=== PATIENT | male | born 1945 | race African-American/Black ===

== ENCOUNTER 2017-01-02 19:41 | Inpatient (IN) | payer BC ==
[~2017-01-02] VITALS: Ht 185.4 cm; Wt 78.5 kg
--- NOTE | 2017-01-02 19:29 | Emergency Room Report ---
History of Present Illness General Source: Patient, Medical Record, EMS Present Illness HPI 71YOM with 2x episodes syncope tonight. First occurred when bringing dishes to sink after dinner. Not sure if hit head. LOC for "a couple seconds." Denies any pain from fall. Tried again and fell again. Saw GI specialist this morning - has endocscopy scheduled to "evaluate for ulcer." Was given Rx refill for omeprazole. Also had "some dark stool" had "some blood in test the GI doctor did this morning." Saw PMD 5 days prior for stomach discomfort, gassy feeling. Has been on PPI for a while because he used to take ASA daily. Has allergy to ibuprofen so never took chronically.Denies any other chronic NSAID use. Per EMS SBP was 89 on scene ,improved to >100 after IVF fluid bolus Takes daily HTN med in the morning - took today. HCTZ/Lisinopril. Not on beta- rashid. Has been on fast for a week - only tea, juice. No food or much water. Allergies: Coded Allergies: No Known Allergies (Unverified , 01/02/17) Patient History Past Medical History: HTN, GERD, other - See HPI Past Surgical History: none Pertinent Family History: none Social History: Denies: smoking, alcohol use, drug use Immunizations: UTD Reviewed Nursing Documentation: PMH: Agreed, PSxH: Agreed Review of Systems All Other Systems: negative except mentioned in HPI Physical Exam Sp02 EP Interpretation: reviewed, normal General Appearance: normal inspection, well appearing, no apparent distress, alert, GCS 15, non-toxic Head: normocephalic, atraumatic Eyes: bilateral eye PERRL, bilateral eye EOMI ENT: normal ENT inspection, hearing grossly normal, normal voice Neck: normal inspection, full range of motion, supple, no bony tend Respiratory: normal inspection, lungs clear, normal breath sounds, no respiratory distress, no retraction, no wheezing Cardiovascular #1: regular rate, rhythm, no edema Gastrointestinal: normal inspection, normal bowel sounds, non tender, soft, no guarding, no hernia Genitourinary: no CVA tenderness Musculoskeletal: normal inspection, back normal, normal range of motion, Helio' s Sign negative Neurologic: normal inspection, alert, responsive, speech normal Psychiatric: normal inspection, judgement/insight normal, mood/affect normal Skin: normal inspection, normal color, no rash Procedures Critical Care Time Critical Care Time CC time 45 min includes stabilization of hypotension, multiple bedside assessment for fluid status, review of labs, imaging Possibly includes pressors, d/w hospitalist or critical care management Review of EMR, discussion with family, review of chart from [facility] Medical Decision Making Medicare Attestation I Edward Mcarthur MD hereby attest that the medical record entry for date of service, 01/02/17 accurately reflects signatures/notations that I made in my capacity as MD when I treated/diagnosed the above listed Medicare beneficiary. I attest that this information is true, accurate and complete to the best of my knowledge. I understand that any falsification, omission, or concealment of material fact may subject me to administrative, civil, or criminal liability. This patient warrants hospital admission for extreme of age and has a condition that cannot be treated as outpatient. Diagnostic Impression: Primary Impression: Hypotension Qualified Codes: I95.9 - Hypotension, unspecified Additional Impressions: Syncope Qualified Codes: R55 - Syncope and collapse Melena SEAN (acute kidney injury) Dehydration ER Course 71YOF with 2x syncopal episodes in setting of fast, diuretic use, ?GI bleed Hypotension is fluid responsive here SEAN with elevated serum Cr 3.3 HypoNa also c/w dehydration 2L NS given in ED ECG non-ischemic. Sinus rhythm with sinus arrhythmia and PACs CT head negative for trauma Endorsed to DR Iglesias for tele admit at 840pm EKG Diagnostic Results Rate: normal, other - PACs Rhythm: NSR ST Segments: no acute changes ASA given to the pt in ED: No Rhythm Strip Diag. Results EP Interpretation: yes Rate: 75 Rhythm: NSR, no PVC's, no ectopy Chest X-Ray Diagnostic Results Chest X-Ray Diagnostic Results : Chest X-Ray Ordered: Yes # of Views/Limited/Complete: 1 View Indication: Other - AMS EP Interpretation: Yes Interpretation: no consolidation, no effusion, no pneumothorax, no acute cardiopulmonary disease Impression: No acute disease Electronically Signed by: Dr Edward Mcarthur MD Status: improved Disposition: ADMITTED INPATIENT Condition: EDWARD Rahman M.D. Jan 02, 2017 19:29
[~2017-01-02 19:41] MED LIST: LISINOPRIL-HCT1 EAC2 ORAL; OMEPRAZOLE20 M2 ORAL
[2017-01-02 19:45] VITALS: BP 108/43
[2017-01-02] MEDS ORDERED: Pantoprazole Inj IVP ONE (19:45)
[2017-01-02 20:10] LABS: BASOPHILS % (AUTO) 0.8 % (0.0-2.0); EOSINOPHILS % (AUTO) 0.6 % (0.0-3.0); LYMPHOCYTES % (AUTO) 18.1 % (20.0-45.0); MEAN CORPUSCULAR HEMOGLOBIN 27.8 PG (27.0-31.0); MEAN CORPUSCULAR HGB CONC 31.9 G/DL (32.0-36.0); MEAN CORPUSCULAR VOLUME 87 FL (80-99); MEAN PLATELET VOLUME 6.6 FL (6.5-10.1); MONOCYTES % (AUTO) 8.3 % (1.0-10.0); NEUTROPHILS % (AUTO) 72.1 % (45.0-75.0); PLATELET COUNT 161 K/UL (150-450); RED BLOOD COUNT 4.85 M/UL (4.70-6.10); RED CELL DISTRIBUTION WIDTH 11.7 % (11.6-14.8); WHITE BLOOD COUNT 6.2 K/UL (4.8-10.8)
[2017-01-02 20:21] LABS: ANION GAP 6 mmol/L (5-15); CALCIUM 8.8 MG/DL (8.5-10.1); CARBON DIOXIDE 30 MMOL/L (21-32); CHLORIDE 93 MMOL/L (98-107); CREATININE 3.3 MG/DL (0.55-1.30); GLOMERULAR FILTRATION RATE 22.5 mL/min (>60); POTASSIUM 3.8 MMOL/L (3.5-5.1); SODIUM 129 MMOL/L (136-145)
[2017-01-02 20:22] LABS: PROTHROMBIN TIME 10.7 SEC (9.30-11.50)
[2017-01-02 20:25] LABS: ALANINE AMINOTRANSFERASE 28 U/L (12-78); ALBUMIN/GLOBULIN RATIO 1.2 (1.0-2.7); ASPARTATE AMINO TRANSFERASE 16 U/L (15-37); LIPASE 219 U/L (73-393); TOTAL PROTEIN 6.4 G/DL (6.4-8.2)
[2017-01-02] MEDS ORDERED: Nitroglycerin Subl 0.4mg tab SL ONE (20:52)
[2017-01-02 21:50] VITALS: BP 115/58
[2017-01-03] VITALS (9 sets, daily range): BP systolic 100–122; BP diastolic 58–72
[2017-01-03 07:38] LABS: BASOPHILS % (AUTO) 0.5 % (0.0-2.0); EOSINOPHILS % (AUTO) 1.5 % (0.0-3.0); MEAN CORPUSCULAR HEMOGLOBIN 29.3 PG (27.0-31.0); MEAN CORPUSCULAR HGB CONC 34.1 G/DL (32.0-36.0); MEAN CORPUSCULAR VOLUME 86 FL (80-99); MEAN PLATELET VOLUME 7.5 FL (6.5-10.1); MONOCYTES % (AUTO) 9.4 % (1.0-10.0); NEUTROPHILS % (AUTO) 54.6 % (45.0-75.0); PLATELET COUNT 144 K/UL (150-450); RED BLOOD COUNT 4.17 M/UL (4.70-6.10); RED CELL DISTRIBUTION WIDTH 11.7 % (11.6-14.8); WHITE BLOOD COUNT 4.8 K/UL (4.8-10.8)
[2017-01-03 07:55] LABS: ANION GAP 2 mmol/L (5-15); CALCIUM 8.8 MG/DL (8.5-10.1); CARBON DIOXIDE 32 MMOL/L (21-32); CHLORIDE 102 MMOL/L (98-107); CREATININE 2.2 MG/DL (0.55-1.30); PHOSPHORUS 3.2 MG/DL (2.5-4.9); POTASSIUM 4.8 MMOL/L (3.5-5.1); SODIUM 136 MMOL/L (136-145)
--- NOTE | 2017-01-03 09:42 | Diagnostic Imaging Report ---
Indication: AMS trauma, status post fall Technique: Continuous helical CT scanning of the head was performed without intravenous contrast material. Axial and coronal 5 mm sections were generated. Radiation dose was minimized using automated exposure control Dose: Total Dose Length Product - DLP [address] Dose Index - CTDIvol(s) 70.38 mGy. Comparison: None Findings: The ventricular system is normal in size and configuration. There is no shift of midline structures. No abnormal extra-axial fluid collections are noted. There is no evidence of intracerebral bleeding. No other abnormal high or low density areas are noted within the brain. Intact calvarium. Visualized orbits and sinuses are unremarkable. Impression: Normal CT scan of the head without contrast material. This agrees with the preliminary interpretation provided overnight by Dr. Dickens The CT scanner at [facility] is accredited by the [employer] and the scans are performed using protocols designed to limit radiation exposure to as low as reasonably achievable to attain images of sufficient resolution adequate for diagnostic evaluation.
--- NOTE | 2017-01-03 20:00 | Consultation ---
DATE OF CONSULTATION: 01/03/2017 CARDIOLOGY CONSULTATION CONSULTING PHYSICIAN: Thom Kirkland M.D. REQUESTING PHYSICIAN: Edward Iglesias M.D. REASON FOR CONSULTATION: Syncope. HISTORY OF PRESENT ILLNESS: This is a 71-year-old male with history of hypertension, but no other cardiovascular history. He does have a history of gastroesophageal reflux disease as well as a possible gastric ulcer. Over the past eight days, he went on a diet to allow his stomach symptoms to heal. He states that he only had liquids. He saw his primary doctor five days ago, who told him to resume a bland diet. Several days later, he saw a GI doctor, who told him to resume a regular diet because of concern over dehydration and abnormal kidney function. The patient notes some dark stool. He had a positive occult blood screen according to his history. He has been told to stop his aspirin. He was scheduled for an outpatient endoscopy in several days from now. Yesterday evening after dinner, he stood up, felt lightheaded and while walking with the dishes to the sink, passed out for a few seconds. His was present. She helped him up. He did not hurt himself and again he stumbled and nearly lost consciousness again. Paramedics were called and he was brought to this emergency room. Since admission, he has not had any loss of consciousness. panel monitor has revealed sinus arrhythmia with frequent atrial ectopics. PAST MEDICAL HISTORY: GERD, hypertension. MEDICATIONS: Medications prior to admission reviewed and reconciled. ALLERGIES: None known. SOCIAL HISTORY: Negative for smoking, alcohol, or substance abuse. FAMILY HISTORY: Noncontributory. REVIEW OF SYSTEMS: A 10-point review of systems performed, all systems negative other than noted above. PHYSICAL EXAMINATION: GENERAL: Appears well, in no distress. VITAL SIGNS: In the emergency room, blood pressure 99/58, heart rate 60, and respiratory rate 16. Presently, blood pressure 122/66, heart rate 73, respiratory rate 18, afebrile. HEENT: Normocephalic and atraumatic. Conjunctivae are pink. Oropharynx clear. NECK: Supple. No carotid sinus hypersensitivity. LUNGS: Clear. CARDIAC: Regular rhythm rate. Normal S1, S2. No murmur. ABDOMEN: Soft and nontender. No guarding or rebound. No masses. EXTREMITIES: No edema. LABORATORY DATA: White count 4.8, hemoglobin 12.2. On admission, sodium 129, potassium 3.8, chloride 93, bicarbonate 30, BUN 53, and creatinine 3.3. Troponin 0.008. Albumin 3.5. Today, BUN and creatinine have improved to 43/2.2 and sodium is 136. Troponin is 0.019. IMPRESSION: 1. Hypovolemic and orthostatic syncope. 2. Acute renal failure. 3. Hypovolemia and dehydration. 4. Troponin leak secondary to above. 5. Hyponatremia and hypochloremia, corrected with saline hydration. 6. Hemoccult-positive stool. 7. Peptic ulcer disease. 8. Sinus arrhythmia with premature atrial contraction of no clinical significance. PLAN: Continue saline hydration. Check CK and CK isoenzyme. Continue cardiac monitoring. Check full thyroid panel and magnesium level. Proceed with upper gastrointestinal endoscopy. Echocardiogram to assess for structural heart disease. Thom Kirkland M.D. DR: Roberto JOB#: [id number] CC:
--- NOTE | 2017-01-03 22:05 | History & Physical ---
History and Physical History & Physicial [id number] ARF dehydration GERD htn KENY BRASWELL DO Jan 03, 2017 22:05
[2017-01-04 00:39] VITALS: BP 106/64
[2017-01-04 04:05] VITALS: BP 112/62
--- NOTE | 2017-01-04 04:30 | History and Physical Report ---
DATE OF ADMISSION: 01/02/2017 REASON FOR ADMISSION: Syncope. HISTORY OF PRESENT ILLNESS: This is a 71-year-old gentleman with a history of hypertension and otherwise was told that he had a concern of anemia. For some reason, the patient felt that if he did not eat or drink and fasted for approximately 8 days to "let his stomach heal." He had a syncopal episode that was unwitnessed and was brought to the emergency room for further evaluation. After the patient was fasting, he did see a gastrointestinal doctor, who did state that he could take a bland diet, was concerned about his kidney function due to his fasting. The patient has planned for an endoscopy next week. He currently denies any chest pain, nausea, vomiting, diarrhea, fever, chills, or weight changes. He is currently alert and oriented, ambulating without any dizziness. No nausea or vomiting. He has been on intravenous fluids and is currently making adequate urine. PAST MEDICAL HISTORY: Gastroesophageal reflux disease and hypertension. MEDICATIONS: His pre-hospital and present medications have been reviewed and reconciled. ALLERGIES: He has no known drug allergies. SOCIAL HISTORY: Negative for tobacco, alcohol, or drugs. FAMILY HISTORY: Noncontributory. REVIEW OF SYSTEMS: Negative for chest pain, shortness of breath, nausea, diarrhea, fever, chills, or weight changes. PHYSICAL EXAMINATION: GENERAL: At the time of exam, he is alert, oriented, no acute distress. He is afebrile. VITAL SIGNS: Blood pressure is 122/72 and respirations are 18. HEENT: He is normocephalic and atraumatic. Oropharynx is moist. Nasal mucosa is moist. NECK: Supple. No lymphadenopathy or thyromegaly. LUNGS: Decreased at bases. No wheeze present. HEART: Regular rhythm without murmur. ABDOMEN: Soft and nontender. Positive bowel sounds. NEUROLOGIC: He has no focal neurologic deficits. No edema is noted. Cranial nerves II to XII are intact. LABORATORY AND DIAGNOSTIC DATA: His white count is 4.8, hemoglobin 12.2, and platelets are 144,000. Sodium is 136, potassium 4.8, chloride 102, bicarbonate 32, BUN 43, and creatinine 2.2, which is improved from his initial BUN of 53, creatinine of 3.3, glucose is 85. Troponin was 0.08, then followed by a 0.019, and then followed by 0.018. His INR is 1. A head CT was performed as there was a questionable report of head trauma when he had syncopal episode and was noted to be normal. ASSESSMENT: Syncopal episode, most likely secondary to dehydration as the patient had completed an eight-day fast, possible anemia, gastroesophageal reflux disease, hypertension, acute renal insufficiency secondary to dehydration, and positive troponin secondary to demand ischemia. PLAN: Clinically improving with current intravenous fluids. We will continue and monitor his lytes, replace them accordingly. DVT prophylaxis and as needed nebulizer treatments. Recheck his laboratories in the morning. Aspiration precautions and a renal diet at this time and we will continue to follow the patient. Renal ultrasound has also been ordered. Loan Harden D.O. DR: SIMRAN JOB#: [id number] CC:
[2017-01-04 08:00] VITALS: BP 130/86
[2017-01-04 08:06] LABS: ALANINE AMINOTRANSFERASE 20 U/L (12-78); ALBUMIN/GLOBULIN RATIO 1.3 (1.0-2.7); ANION GAP 7 mmol/L (5-15); ASPARTATE AMINO TRANSFERASE 16 U/L (15-37); CALCIUM 8.2 MG/DL (8.5-10.1); CARBON DIOXIDE 27 MMOL/L (21-32); CHLORIDE 105 MMOL/L (98-107); CKMB 2.8 NG/ML (0.0-3.6); CREATININE 1.6 MG/DL (0.55-1.30); MAGNESIUM 1.7 MG/DL (1.8-2.4); POTASSIUM 4.2 MMOL/L (3.5-5.1); SODIUM 139 MMOL/L (136-145); THYROID STIMULATING HORMONE 1.075 uiU/mL (0.358-3.740); TOTAL PROTEIN 5.1 G/DL (6.4-8.2)
--- NOTE | 2017-01-04 10:45 | Pulmonology Progress Note ---
Assessment/Plan Assessment/Plan ASSESSMENT: Syncopal episode, most likely secondary to dehydration as the patient had completed an eight-day fast possible anemia, gastroesophageal reflux disease, hypertension, acute renal insufficiency secondary to dehydration positive troponin secondary to demand ischemia. PLAN: doing well cr decreasing nicely fu renal viktor iv for next 24 hours pt for colonsocopy Thursday, concerned with recurrent dehydration with prep, would advise to reschedule as it is not urgent holdign bp meds will resume when cr normalizes expect dc in am Subjective Constitutional: Reports: no symptoms HEENT: Repors: no symptoms Respiratory: Reports: no symptoms Cardiovascular: Reports: no symptoms Gastrointestinal/Abdominal: Reports: no symptoms Genitourinary: Reports: no symptoms Allergies: Coded Allergies: No Known Allergies (Unverified , 01/02/17) Subjective awake no distress toelrating po no fever cr 1.6. no dizziness renal viktor still pengin Objective Last 24 Hour Vital Signs Date Time Temp Pulse Resp B/P (MAP) Pulse Ox O2 Delivery O2 Flow Rate FiO2 01/04/17 08:00 68 01/04/17 08:00 98.8 56 18 130/86 100 Room Air 01/04/17 04:05 97.7 66 18 112/62 98 Room Air 01/04/17 04:00 64 01/04/17 00:39 94.6 60 18 106/64 97 Room Air 01/04/17 00:00 63 01/03/17 20:03 97.4 71 18 122/72 94 Room Air 01/03/17 20:00 71 01/03/17 16:30 97.9 73 19 102/65 Room Air 01/03/17 16:00 67 01/03/17 12:29 97.2 73 18 122/66 Room Air 01/03/17 12:00 60 General Appearance: WD/WN Respiratory/Chest: lungs clear, normal breath sounds Cardiovascular: normal rate, regular rhythm Abdomen: soft, non tender, no organomegaly Extremities: no cyanosis Skin: no rash Neurologic/Psychiatric: oriented x 3 Laboratory Tests 01/03/17 12:00: Troponin I 0.018 01/04/17 04:35: Troponin I 0.007, Sodium Level 139, Potassium Level 4.2, Chloride Level 105, Carbon Dioxide Level 27, Anion Gap 7, Blood Urea Nitrogen 25H, Creatinine 1.6H, Estimat Glomerular Filtration Rate 52.0, Glucose Level 77, Calcium Level 8.2L, Magnesium Level 1.7L, Total Bilirubin 0.3, Aspartate Amino Transf (AST/SGOT) 16 , Alanine Aminotransferase (ALT/SGPT) 20, Alkaline Phosphatase 54, Total Creatine Kinase 216, Creatine Kinase MB 2.8, Creatine Kinase MB Relative Index 1.2, Total Protein 5.1L, Albumin 2.9L, Globulin 2.2, Albumin/Globulin Ratio 1.3 , Thyroid Stimulating Hormone (TSH) 1.075 Current Medications Medications (Trade) Dose Ordered Sig/Obi Route PRN Reason Start Time Stop Time Status Last Admin Dose Admin Acetaminophen (Tylenol) 650 mg Q6H PRN ORAL Mild Pain/Temp > 100.5 01/02/17 23:15 02/01/17 23:14 Magnesium Sulfate 100 ml @ 100 mls/hr ONCE ONCE IVPB 01/04/17 11:30 01/04/17 12:29 Pantoprazole (Protonix) 80 mg BID ORAL 01/03/17 09:00 02/02/17 08:59 01/04/17 09:17 Sodium Chloride 1,000 ml @ 100 mls/hr Q10H IV 01/02/17 23:15 02/01/17 23:14 01/04/17 05:52 KENY BRASWELL DO Jan 04, 2017 10:45
[2017-01-04 12:00] VITALS: BP 122/74
[2017-01-04 16:48] VITALS: BP 136/76
[2017-01-04] MEDS ORDERED: Tubing IV Secondary IV ONE (19:02)
[2017-01-04 20:00] VITALS: BP 108/59
--- NOTE | 2017-01-04 23:15 | Progress Note ---
DATE: 01/04/2017 CARDIOLOGY PROGRESS NOTE SUBJECTIVE: The patient has not had any loss of consciousness. No dizziness. He remains on IV fluid hydration. Monitored rhythm, sinus arrhythmia with premature atrial contractions. OBJECTIVE: VITAL SIGNS: Blood pressure 112/62, pulse 66, respirations 18, and afebrile. LUNGS: Clear. CARDIAC: Regular with occasional ectopic beat. No new murmur. ABDOMEN: Soft and distended. EXTREMITIES: No edema. LABORATORY STUDIES: White count 4.8 yesterday, hemoglobin 12 today. Potassium 4.2, BUN 25, creatinine 1.6. Troponins remained negative. CK 216 and albumin 2.9. IMPRESSION: 1. Acute renal failure due to acute tubular necrosis, recovering with hydration. 2. Orthostatic and hypovolemic syncope. 3. Sinus arrhythmia. 4. Premature atrial contractions of no clinical significance. 5. Moderate protein-calorie malnutrition, following dieting. 6. Possible peptic ulcer disease with dyspepsia. PLAN: 1. Continue hydration. 2. Protein supplement. 3. Renewal of antiarrhythmics. 4. Diagnostic panendoscopy to follow. Thom Kirkland M.D. DR: JADIEL JOB#: [id number] CC:
[2017-01-05 00:10] VITALS: BP 121/77
[2017-01-05 04:20] VITALS: BP 124/67
[2017-01-05 08:20] VITALS: BP 133/85
[2017-01-05 10:40] LABS: EOSINOPHILS % (AUTO) 2.5 % (0.0-3.0); LYMPHOCYTES % (AUTO) 35.3 % (20.0-45.0); MEAN CORPUSCULAR HGB CONC 31.9 G/DL (32.0-36.0); MEAN CORPUSCULAR VOLUME 88 FL (80-99); MEAN PLATELET VOLUME 7.3 FL (6.5-10.1); MONOCYTES % (AUTO) 8.3 % (1.0-10.0); NEUTROPHILS % (AUTO) 52.9 % (45.0-75.0); PLATELET COUNT 153 K/UL (150-450); RED BLOOD COUNT 4.93 M/UL (4.70-6.10); RED CELL DISTRIBUTION WIDTH 12.3 % (11.6-14.8)
[2017-01-05 11:49] LABS: ANION GAP 9 mmol/L (5-15); CALCIUM 8.5 MG/DL (8.5-10.1); CARBON DIOXIDE 27 MMOL/L (21-32); CHLORIDE 102 MMOL/L (98-107); CREATININE 1.4 MG/DL (0.55-1.30); GLOMERULAR FILTRATION RATE > 60 mL/min (>60); POTASSIUM 3.7 MMOL/L (3.5-5.1); SODIUM 138 MMOL/L (136-145)
[2017-01-05 12:15] VITALS: BP 140/92
[2017-01-05] MEDS ORDERED: KCl 10% 20 mEq/15ml liquid ORAL ONE (12:30)
--- NOTE | 2017-01-05 12:40 | Cardiology Report ---
APPROVED REPORT EXAM: Two-dimensional and M-mode echocardiogram with Doppler and color Doppler. INDICATION Syncope M-Mode DIMENSIONS IVSd0.9 (0.7-1.1cm)Left Atrium (MM)3.1 (1.6-4.0cm) LVDd5.2 (3.5-5.6cm)Aortic Root3.0 (2.0-3.7cm) PWd1.1 (0.7-1.1cm)Aortic Cusp Exc.1.8 (1.5-2.0cm) LVDs4.2 (2.5-4.0cm) PWs1.3 cm Technically difficult study due to poor acoustical windows. Normal left ventricular chamber size, systolic function and wall motion. Left ventricular ejection fraction estimated to be 60-65%. No evidence of left ventricular hypertrophy. No evidence of pericardial or pleural effusion. Right cardiac chamber sizes are within normal limits. Moderate right atrial enlargement by 2D. Mild right ventricular enlargement by 2D. Focal aortic valve sclerosis with adequate cusp excursion. Normal mitral valve leaflets with normal excursion. Normal mitral annulus and aortic root. Pulmonic valve not well visualized. Normal tricuspid valve structure. IVC is normal in size and collapsible with respiration. A color flow and spectral Doppler study was performed and revealed: No aortic regurgitation. Trace mitral regurgitation. Mitral diastolic dysfunction not obtainable due to arrhythmia. No tricuspid regurgitation.
--- NOTE | 2017-01-05 12:56 | Pulmonology Progress Note ---
Assessment/Plan Assessment/Plan Syncopal episode, due to dehydration gastroesophageal reflux disease hypertension acute renal insufficiency due to dehydration positive troponin secondary to demand ischemia. paroxysmal A fib PLAN: doing well cr decreasing nicely iv for next 24 hours defer GI eval no ACs until GI eval completed expect dc in am Subjective Respiratory: Denies: shortness of breath Cardiovascular: Denies: chest pain Allergies: Coded Allergies: No Known Allergies (Unverified , 01/02/17) Objective Last 24 Hour Vital Signs Date Time Temp Pulse Resp B/P (MAP) Pulse Ox O2 Delivery O2 Flow Rate FiO2 01/05/17 12:15 97.7 71 18 140/92 100 Room Air 01/05/17 08:20 97.0 75 18 133/85 99 Room Air 01/05/17 08:00 74 01/05/17 04:20 97.0 64 21 124/67 97 Room Air 01/05/17 04:00 58 01/05/17 00:10 97.3 42 20 121/77 99 Room Air 01/05/17 00:00 50 01/04/17 20:00 65 01/04/17 20:00 97.7 53 21 108/59 98 Room Air 01/04/17 16:48 98.5 58 20 136/76 100 Room Air 01/04/17 16:00 67 Intake and Output 01/05/17 01/06/17 19:00 07:00 Intake Total 740 ml Balance 740 ml Intake Oral 240 ml IV Total 500 ml General Appearance: no acute distress HEENT: atraumatic Cardiovascular: normal rate Laboratory Tests 01/05/17 10:15: White Blood Count 4.0L, Red Blood Count 4.93, Hemoglobin 13.8L, Hematocrit 43.1 , Mean Corpuscular Volume 88, Mean Corpuscular Hemoglobin 28.0, Mean Corpuscular Hemoglobin Concent 31.9L, Red Cell Distribution Width 12.3, Platelet Count 153, Mean Platelet Volume 7.3, Neutrophils (%) (Auto) 52.9, Lymphocytes (%) (Auto) 35.3, Monocytes (%) (Auto) 8.3, Eosinophils (%) (Auto) 2.5, Basophils (%) (Auto) 1.0, Sodium Level 138, Potassium Level 3.7, Chloride Level 102, Carbon Dioxide Level 27, Anion Gap 9, Blood Urea Nitrogen 15, Creatinine 1.4H, Estimat Glomerular Filtration Rate > 60, Glucose Level 89, Calcium Level 8.5, Magnesium Level 1.7L Current Medications Medications (Trade) Dose Ordered Sig/Obi Route PRN Reason Start Time Stop Time Status Last Admin Dose Admin Acetaminophen (Tylenol) 650 mg Q6H PRN ORAL Mild Pain/Temp > 100.5 01/02/17 23:15 02/01/17 23:14 Magnesium Sulfate 100 ml @ 100 mls/hr Q1H IVPB 01/05/17 12:30 01/05/17 14:29 01/05/17 12:33 Pantoprazole (Protonix) 80 mg BID ORAL 01/03/17 09:00 02/02/17 08:59 01/05/17 07:51 Sodium Chloride 1,000 ml @ 100 mls/hr Q10H IV 01/02/17 23:15 02/01/17 23:14 01/05/17 12:32 YELENA MILLER Jan 05, 2017 12:56
--- NOTE | 2017-01-05 13:09 | Diagnostic Imaging Report ---
Indication: Abnormal renal function tests Technique: Grayscale and duplex images of the kidneys, retroperitoneum, and bladder were obtained. Comparison:None Findings: Right kidney measures 10.7 cm in length. Left kidney measures 10.4 cm in length. Both kidneys demonstrate normal echogenicity. No hydronephrosis. Right kidney demonstrates a 7 mm interpolar region cyst adjacent to the sinus. The left kidney demonstrates a possible small calcification in the interpolar region parenchyma. Prevoid bladder volume 87 mL. Postvoid bladder volume 31 mL. Normal inferior vena cava. Impression: Negative for hydronephrosis 31 mL postvoid bladder volume Possible small left renal calcification, likely parenchymal rather than calyceal if real. Incidental finding small right renal cyst
[2017-01-05 16:18] VITALS: BP 123/71
--- NOTE | 2017-01-05 17:57 | Cardiology Report ---
APPROVED REPORT EKG Measurement Heart [id number] Atrial fibrillation with slow ventricular response Abnormal ECG
[2017-01-05 20:20] VITALS: BP 130/77
[2017-01-06 00:06] VITALS: BP 170/92
[2017-01-06 00:15] VITALS: BP 146/76
[2017-01-06 04:00] VITALS: BP 143/82
--- NOTE | 2017-01-06 04:00 | Progress Note ---
DATE: 01/05/2017 CARDIOLOGY PROGRESS NOTE SUBJECTIVE: The patient still has episodes of dyspepsia and reflux. He elected to defer his gastrointestinal workup as an outpatient with his primary care physician. The patient continues to have sinus arrhythmia, frequent PACs, and very short runs of atrial fibrillation that are rate controlled. This was discussed with the patient. He was made aware of the cardioembolic risk of stroke in this setting and that long-term anticoagulation may be a consideration. However, it would be optimal to clear "his GI tract" in view of his prior history and that will be promptly completed following discharge. As such, he wishes to defer anticoagulation presently. OBJECTIVE: VITAL SIGNS: 140/92 is the maximal blood pressure, otherwise lowest blood pressure 108/59, heart rate ranging from 42 to 75, respiratory rate 18 to 21, the patient is afebrile. NECK: Supple. LUNGS: Clear. CARDIAC: Irregular. Normal S1, S2. No murmur. ABDOMEN: Soft. No focal tenderness. EXTREMITIES: No edema. LABORATORY DATA: White count 4, hemoglobin 13.8. Magnesium 1.7. Potassium 3.7, BUN 15, and creatinine 1.4. IMPRESSION: 1. Acute renal failure, resolving. 2. Hypovolemia and dehydration, improving. 3. Hypomagnesemia. 4. Moderate protein-calorie malnutrition. 5. Dyspepsia and reflux. 6. Paroxysmal atrial fibrillation. 7. Premature atrial contractions. 8. Sinus arrhythmia. PLAN: 1. Replace magnesium. 2. Maintain potassium above 4. 3. No role for beta-blockers in view of low baseline heart rate. 4. As described above, consideration for anticoagulation to follow completion of GI workup. Thom Kirkland M.D. DR: Roberto JOB#: [id number] CC:
[2017-01-06 08:00] VITALS: BP 147/94
[2017-01-06 08:29] LABS: ANION GAP 9 mmol/L (5-15); CALCIUM 8.8 MG/DL (8.5-10.1); CARBON DIOXIDE 27 MMOL/L (21-32); CHLORIDE 101 MMOL/L (98-107); CREATININE 1.3 MG/DL (0.55-1.30); GLOMERULAR FILTRATION RATE > 60 mL/min (>60); POTASSIUM 3.4 MMOL/L (3.5-5.1); SODIUM 137 MMOL/L (136-145)
[2017-01-06 12:00] VITALS: BP 147/83
[2017-01-06] MEDS ORDERED: LISINOPRIL20 MG ORAL (13:29)
--- NOTE | 2017-01-06 13:34 | Discharge Summary ---
Discharge Summary Hospital Course Date of Admission Jan 02, 2017 at 20:20 Date of Discharge 01/06/17 Admitting Diagnosis hypotension/syncope X2/GI bleed HPI Td Anthony Blunt Jr is a 71 year old male who was admitted on Jan 02, 2017 at 20 :20 for Hypotension/Syncope/Gastrointestinal Bleed Consultations cardiology Procedures no Hospital Course improved w hydration; Cr down to 1.3 parox A fib; no ACs due to GIB hx dc home to f/u w his GI Discharge Medications New Medications: Lisinopril (Lisinopril*) 20 Mg Tablet 20 MG ORAL DAILY, #30 TAB Continued Medications: Omeprazole (Omeprazole) 20 Mg Capsule.dr 40 MG ORAL BID, CAP Discontinued Medications: Lisinopril/Hydrochlorothiazide 20-25 Mg Tab (Lisinopril-Hctz 20-25 Mg Tab) 1 Each Tablet 1 TAB ORAL DAILY, TAB Discharge Condition Upon Discharge: improving Discharge Disposition Patient was discharged to home Discharge Diagnoses: (1) Dehydration (2) Syncope (3) SEAN (acute kidney injury) (4) Hypotension (5) Vaniaena YELENA MILLER Jan 06, 2017 13:34
--- NOTE | 2017-01-06 14:47 | Cardiology Report ---
APPROVED REPORT EKG Measurement Heart [id number] SC 180P55 [id number] Sinus bradycardia with marked sinus arrhythmia Otherwise normal ECG
--- NOTE | 2017-01-06 14:49 | Cardiology Report ---
APPROVED REPORT EKG Measurement Heart [id number] MS 174P83 [id number] Sinus rhythm with marked sinus arrhythmia with premature atrial complexes Otherwise normal ECG
[2017-01-06] MEDS ORDERED: Tubing IV Secondary IV ONE (15:49)
--- NOTE | 2017-01-07 03:00 | Progress Note ---
DATE: 01/06/2017 CARDIOLOGY PROGRESS NOTE SUBJECTIVE: The patient has no chest pain. No abdominal pain. No nausea, vomiting, or shortness of breath. Monitored rhythm, sinus, sinus arrhythmia. Occasional PACs, no recurring. Atrial fibrillation seen over the past 24 hours. The patient is tolerating a diet. OBJECTIVE: VITAL SIGNS: Blood pressure 147/83, pulse 58, and respirations 18. NECK: Supple. LUNGS: Clear. CARDIAC: Regular. Normal S1 and S2 with a fourth heart sound. ABDOMEN: Soft. EXTREMITIES: No edema. IMPRESSION: 1. Acute renal failure, resolved. 2. Hypovolemia and dehydration, improved. 3. Hypomagnesemia, corrected. 4. Moderate protein-calorie malnutrition, now improved oral intake. 5. Paroxysmal atrial fibrillation. 6. Sinus arrhythmias. 7. Premature atrial contractions. 8. Sinus node disease, asymptomatic and likely exacerbated by abdominal symptoms and increased vagal tone. PLAN: 1. Monitor and correct magnesium and potassium levels as needed. 2. Avoid beta-blockers in this clinical setting. 3. No indication for pacemaker. 4. Reassess risk benefit ratio of anticoagulation following completion of GI workup. 5. Outpatient followup. Thom Kirkland M.D. DR: TALYA JOB#: [id number] CC:
== END 2017-01-06 15:50 | disposition home or self-care (01) | DRG 640 ==
LOC: EDBD 19:41 → EMR 19:51 → 2E 20:20 → EDBEDREQ 21:19 → 2E 01-04 11:26
DX: E86.0 Dehydration (principal); N17.0 Acute kidney failure with tubular necrosis; E44.0 Moderate protein-calorie malnutrition; I95.9 Hypotension, unspecified; I24.8 Other forms of acute ischemic heart disease; I48.0 Paroxysmal atrial fibrillation; K27.9 Peptic ulcer, site unspecified, unspecified as acute or chronic, without hemorrhage or perforation; K92.1 Melena; E87.1 Hypo-osmolality and hyponatremia; D64.9 Anemia, unspecified; R55 Syncope and collapse; Z68.22 Body mass index [BMI] 22.0-22.9, adult; I10 Essential (primary) hypertension; K21.9 Gastro-esophageal reflux disease without esophagitis
CPT/HCPCS: 36415; 70450; 76775; 80048; 80053; 82550; 82553; 83690; 83735; 83880; 84100; 84443; 84484; 85025; 85610; 85730; 86850; 86900; 86901; 93005; 93306; 99291; J8499